=== PATIENT | male | born 1935 | race Caucasian/White ===

== ENCOUNTER 2017-10-19 14:16 | Emergency (ER) | payer OTHER, MEDICARE ==
[2017-10-19 14:23] VITALS: RESP 16; TEMP 97.7
--- NOTE | 2017-10-19 15:22 | EDPHY ---
HPI/HX/ROS/PE/MDM Narrative: CHIEF COMPLAINT: Spitting up blood HPI: The patient is a 81-year-old male with a history of coronary artery disease , currently on Plavix. 2 weeks ago he noted mild amount of blood in his mouth after brushing his teeth. Today, he had a baguette sandwich that he thinks may have cut his mouth. After working out, he spit in the sink and noticed some bright red blood. This has cleared and he is now able to spit without any blood noticed. He denies coughing he very clearly. He denies any vomiting or stool changes. No abdominal pain. No history of GI bleed. REVIEW OF SYSTEMS: Aside from elements discussed in the HPI, a comprehensive 10-point review of systems was reviewed and is negative. PMH: Includes coronary disease with history of stents. SOCIAL HISTORY: . Denies alcohol or drug abuse. PHYSICAL EXAM: General:Patient is alert, in no acute distress. ENT:Eyes are normal to inspection. ENT inspection normal. No oral lesions noted. Neck: Normal inspection. Full range of motion. Respiratory:No respiratory distress. Breath sounds normal bilaterally. Cardiovascular: Regular rate and rhythm. Strong peripheral pulses. Normal cap refill. Abdomen:The abdomen is nontender to palpation. There are no peritoneal signs. There are normal bowel sounds. Back: Normal to inspection. No tenderness to palpation. Skin: Normal color. No rash. Warm and dry. Extremities: Normal appearance. Full range of motion. Neuro: Oriented x3. Normal motor function. Normal sensory function. MDM: This patient presents with two isolated episodes of mild blood in saliva. The first appears to be clearly associated with brushing his teeth, and today's episode seems associated with chewing on very hard bread. He has no history to suggest hematemesis or hemoptysis. He has no stool changes to suggest GIB. His labs are normal. I think this most likely represents a known side-effect of Plavix. Patient is comfortable going home, and will return if symptoms recur. - Data Points Imaging Results: Imaging Impressions Chest X-Ray 10/19/17 14:42 Impression: 1. Mild elevation left hemidiaphragm with compressive atelectatic change at the left base. 2. Borderline cardiomegaly with coronary artery stent noted on the left. Laboratory Results: Laboratory Results 10/19/17 16:01 10/19/17 16:01 10/19/17 10/19/17 10/19/17 16:01 16:01 16:01 WBC 7.16 10^3/uL 10^3/uL (3.80-9.50) RBC 4.93 10^6/uL 10^6/uL (4.40-6.38) Hgb 15.5 g/dL g/dL (13.7-17.5) Hct 45.2 % % (40.0-51.0) MCV 91.7 fL fL (81.5-99.8) MCH 31.4 pg pg (27.9-34.1) MCHC 34.3 g/dL g/dL (32.4-36.7) RDW 12.7 % % (11.5-15.2) Plt Count 204 10^3/uL 10^3/uL (150-400) MPV 10.6 fL fL (8.7-11.7) Neut % (Auto) 60.5 % % (39.3-74.2) Lymph % (Auto) 24.7 % % (15.0-45.0) [place] % (Auto) 10.1 % % (4.5-13.0) Eos % (Auto) 3.4 % % (0.6-7.6) Baso % (Auto) 1.0 % % (0.3-1.7) Nucleat RBC Rel Count 0.0 % % (0.0-0.2) Absolute Neuts (auto) 4.34 10^3/uL 10^3/uL (1.70-6.50) Absolute Lymphs (auto) 1.77 10^3/uL 10^3/uL (1.00-3.00) Absolute Monos (auto) 0.72 10^3/uL 10^3/uL (0.30-0.80) Absolute Eos (auto) 0.24 10^3/uL 10^3/uL (0.03-0.40) Absolute Basos (auto) 0.07 10^3/uL 10^3/uL (0.02-0.10) Absolute Nucleated RBC 0.00 10^3/uL 10^3/uL (0-0.01) Immature Gran % 0.3 % % (0.0-1.1) Immature Gran # 0.02 10^3/uL 10^3/uL (0.00-0.10) PT Pending INR Pending APTT Pending Sodium 145 mEq/L mEq/L (135-145) Potassium 4.1 mEq/L mEq/L (3.5-5.2) Chloride 105 mEq/L mEq/L (97-110) Carbon Dioxide 24 mEq/l mEq/l (22-31) Anion Gap 16 mEq/L mEq/L (8-16) BUN 22 mg/dL mg/dL (7-23) Creatinine 1.2 mg/dL mg/dL (0.7-1.3) Estimated GFR 58 Glucose 122 mg/dL H mg/dL (70-100) Calcium 9.5 mg/dL mg/dL (8.5-10.4) General Time Seen by Provider: 10/19/17 15:02 Initial Vital Signs: Initial Vital Signs Temperature (C) 36.5 C 10/19/17 14:21 Heart Rate 71 10/19/17 14:21 Respiratory Rate 16 10/19/17 14:21 Blood Pressure 136/98 H 10/19/17 14:21 O2 Sat (%) 96 10/19/17 14:21 O2 Delivery Mode Room Air Allergies/Adverse Reactions: No Known Allergies Allergy (Verified 10/19/17 14:20) Home Medications: Medication Instructions Recorded Ascorbic Acid [Vitamin C 500 mg 500 mg PO BID 10/02/15 (*)] Cholecalciferol Vit D3 [Vitamin D3 2,000 units PO DAILY 10/02/15 (*)] Clopidogrel Bisulfate [Plavix (*)] 75 mg PO DAILY #0 tab 10/04/15 Atorvastatin Calcium [Lipitor 40 80 mg PO DAILY 09/01/16 mg (*)] Cyanocobalamin [Vitamin B12 (*)] 1,000 mcg PO DAILY 09/01/16 Esomeprazole Magnesium [Nexium] 20 mg PO DAILY 09/01/16 Aspirin EC [Aspirin EC 325 mg (*)] 325 mg PO DAILY #0 tab 09/02/16 Departure - Departure Disposition: Home, Routine, Self-Care Clinical Impression: Abrasion of oral cavity Condition: Good Instructions: Additional Information Additional Instructions: Continue taking medications. Follow-up with your doctor within one month for further evaluation. Return to the ED for fever, continued bleeding in mouth, dark or bloody stools, or other concerns. Referrals: NONE *PRIMARY CARE P,. [Primary Care Provider] - As per Instructions
[2017-10-19 16:11] LABS: PLATELET COUNT 204 10^3/uL (150-400)
[2017-10-19 16:36] LABS: INR 1.05 (0.83-1.16); PROTIME(PATIENT) 13.9 SEC (12.0-15.0)
[2017-10-19 16:51] VITALS: BP 136/84; PULSE 59; O2SAT 94
== END 2017-10-19 16:50 | disposition home or self-care (01) ==
DX: S00.512A Abrasion of oral cavity, initial encounter (principal); I25.10 Atherosclerotic heart disease of native coronary artery without angina pectoris; Z79.82 Long term (current) use of aspirin; X58.XXXA Exposure to other specified factors, initial encounter

== ENCOUNTER → 2018-04-17 | Outpatient (CLI) | payer OTHER, MEDICARE | LOC: BHFA 13:00 | PROVIDERS: ATTEND Internal Medicine Cardiovascular Disease | DX: I25.10 Atherosclerotic heart disease of native coronary artery without angina pectoris (principal) | CPT/HCPCS: 78452; 93017; A9500; J2785 ==